=== PATIENT | female | born 1965 | race Caucasian/White ===

== ENCOUNTER → 2020-03-13 | Outpatient (CLI) | payer BC ==
[2020-03-13 09:27] LABS: BASOPHILS % 0.7 % (0.0-2.0); EOSINOPHILS % 2.9 % (0.0-5.0); HEMATOCRIT. 38.9 % (36.0-48.0); HEMOGLOBIN. 13.1 g/dL (12.0-16.0); LYMPHOCYTES % 21.8 % (20.0-50.0); MEAN CORPUSCULAR HEMOGLOBIN 31.1 pg (28.0-32.0); MEAN CORPUSCULAR VOLUME 92.2 fL (81.0-99.0); MEAN PLATELET VOLUME 8.1 fl (7.4-10.4); MONOCYTES % 6.8 % (2.0-8.0); NEUTROPHILS % 67.8 % (40.0-76.0); PLATELET 244 x1000/uL (130-400); RED BLOOD CELL COUNT 4.22 mill/uL (4.2-5.4); RED CELL DISTRIBUTION WIDTH 13.3 % (11.6-14.6)
[2020-03-13 09:35] LABS: CHLORIDE 111 mEq/L (98-107)
[2020-03-13 09:43] LABS: HDL CHOLESTEROL 51 mg/dL (40-59); LDL CHOLESTEROL 134 mg/dL (5-100)
== END | disposition home or self-care (01) ==
LOC: LAB 08:53
PROVIDERS: ATTEND Family Medicine
DX: B94.8 Sequelae of other specified infectious and parasitic diseases (principal)
CPT/HCPCS: 36415; 80053; 80061; 83036; 84443; 85025

== ENCOUNTER → 2024-10-24 | Outpatient (CLI) | payer BC ==
[~2024-10-24] MED LIST: CEFP200T13 MT; CEPH500C2 MT; NAPR-1176 MT
[2024-10-24 08:48] LABS: BASOPHILS % 0.7 % (0.0-2.0); EOSINOPHILS % 2.6 % (0.0-5.0); HEMATOCRIT. 41.9 % (36.0-48.0); HEMOGLOBIN. 13.7 g/dL (12.0-16.0); LYMPHOCYTES % 18.4 % (20.0-50.0); MEAN PLATELET VOLUME 7.5 fl (7.4-10.4); MONOCYTES % 6.0 % (2.0-8.0); NEUTROPHILS % 72.3 % (40.0-76.0); PLATELET 276 x1000/uL (130-400); RED BLOOD CELL COUNT 4.56 mill/uL (4.2-5.4); RED CELL DISTRIBUTION WIDTH 14.0 % (11.6-14.6)
[2024-10-24 09:18] LABS: TRIGLYCERIDE 108 mg/dL (0-150)
[2024-10-24 09:19] LABS: UREA NITROGEN BLOOD 15 mg/dL (9-23)
[2024-10-24 09:20] LABS: CREATININE 0.9 mg/dL (0.6-1.0)
[2024-10-24 09:21] LABS: ASPARTATE AMINOTRANSFERASE 37 IU/L (<34); LDL CHOLESTEROL 143 mg/dL (5-100)
[2024-10-24 09:22] LABS: BILIRUBIN DIRECT 0.2 mg/dL (<=3.0); BILIRUBIN TOTAL 0.7 mg/dL (0.1-1.0); PROTEIN TOTAL 7.7 g/dL (6.0-8.3)
[2024-10-24 09:39] LABS: T4 FREE 1.21 ng/dL (0.89-1.76)
[2024-10-25 09:07] LABS: *T3 UPTAKE 25 % (24-39); VITAMIN D 25-OH 46.3 ng/mL (30.0-100.0)
== END | disposition home or self-care (01) ==
LOC: LAB 08:19
PROVIDERS: ATTEND Internal Medicine Critical Care Medicine
DX: I10 Essential (primary) hypertension (principal); E11.9 Type 2 diabetes mellitus without complications; E55.9 Vitamin D deficiency, unspecified; D50.9 Iron deficiency anemia, unspecified; Z13.9 Encounter for screening, unspecified
CPT/HCPCS: 36415; 80053; 80061; 80076; 82306; 83036; 84439; 84443; 84479; 85025

== ENCOUNTER 2025-01-01 19:36 | Emergency (ER) | payer BC ==
[~2025-01-01] VITALS: Ht 157.5 cm; Wt 105.0 kg
[2025-01-01 19:48] VITALS: O2SAT 98
[2025-01-01] MEDS: ACETAMINOPHEN 500MG TABLET PO ONE (21:14)
[2025-01-01 21:52] LABS: CLARITY URINE CLOUDY (CLEAR); COLOR URINE YELLOW (YELLOW); GLUCOSE URINE NEGATIVE (NEGATIVE); KETONES URINE NEGATIVE (NEGATIVE); LEUKOCYTE ESTERASE URINE 3+ (NEGATIVE); NITRITE URINE NEGATIVE (NEGATIVE); OCCULT BLOOD URINE 1+ (NEGATIVE); PH URINE 5.5 (4.5-8.0); PROTEIN URINE NEGATIVE (NEGATIVE); SPECIFIC GRAVITY URINE 1.015 (1.005-1.030); UROBILINOGEN URINE 0.2 E.U./dL (0.2-1.0)
[2025-01-01] MEDS ORDERED: NAPR-1176 MT (21:56)
[2025-01-01] MEDS ORDERED: CEPH500C2 MT (21:56)
[2025-01-01] MEDS: CEPHALEXIN 250MG CAPSULE PO ONE (22:18)
[2025-01-01 22:20] LABS: WBC URINE TNTC /hpf (0-2)
[2025-01-01 22:21] VITALS: BP 139/85; PULSE 78; RESP 16; TEMP 36.6; O2SAT 98
[2025-01-01 22:21] LABS: BACTERIA URINE 1+; RBC URINE 0-2 /hpf (0-2); SQUAMOUS EPITHELIAL CELL URINE 1+ /lpf (RARE/1+)
[2025-01-01] MEDS ORDERED: CEFP200T13 MT (23:08)
== END 2025-01-01 22:29 | disposition home or self-care (01) ==
LOC: ER 19:36
DX: N12 Tubulo-interstitial nephritis, not specified as acute or chronic (principal); I10 Essential (primary) hypertension; Z91.040 Latex allergy status; Z79.1 Long term (current) use of non-steroidal anti-inflammatories (NSAID)
CPT/HCPCS: 81003; 81025; 99283